=== PATIENT | female | born 1945 | race Caucasian/White ===

== ENCOUNTER 2017-06-03 08:40 | Outpatient (CLI) | payer OTHER ==
[~2017-06-03 08:40] MED LIST: AVANDIA4 MG PO; GLUCOPHAGE XR500 MG PO; HYZAAR 100-251 UDTAB PO; INTEGRA PLUS C1 EACH PO; OXYC1TAB9 PO; SPIRONOLACTONE25 MG PO
== END 2017-06-03 12:22 | disposition home or self-care (01) ==
LOC: TOM 08:40
DX: C18.5 Malignant neoplasm of splenic flexure (principal); Z90.49 Acquired absence of other specified parts of digestive tract

== ENCOUNTER 2017-06-30 13:35 | Outpatient (CLI) | payer OTHER | END 2017-06-30 13:42 | disposition home or self-care (01) | LOC: LAB 13:35 | DX: C18.5 Malignant neoplasm of splenic flexure (principal) ==

== ENCOUNTER 2017-08-16 08:30 | Inpatient (IN) | payer OTHER ==
[2017-09-05] MEDS ORDERED: OMEPRAZOLE20 M1 PO (11:12)
[2017-09-05] MEDS ORDERED: TYLENOL ARTHRI650 MG PO (11:12)
[2017-09-05] MEDS ORDERED: INTESTINEX680 M1 PO (11:12)
== END 2017-09-05 12:58 | disposition home or self-care (01) | DRG 330 ==
LOC: O/R 08-23 06:15 → SURH 08-23 06:15
PROVIDERS: Surgery; Urology
PROC: 0DBU4ZZ Excision of Omentum, Percutaneous Endoscopic Approach (ICD-10-PCS; 2017-08-23)
PROC: 0T788DZ Dilation of Bilateral Ureters with Intraluminal Device, Via Natural or Artificial Opening Endoscopic (ICD-10-PCS; 2017-08-23)
PROC: 0DJD8ZZ Inspection of Lower Intestinal Tract, Via Natural or Artificial Opening Endoscopic (ICD-10-PCS; 2017-08-23)
PROC: 0DTE4ZZ Resection of Large Intestine, Percutaneous Endoscopic Approach (ICD-10-PCS; principal; 2017-08-23 07:00)
PROC: 07TC4ZZ Resection of Pelvis Lymphatic, Percutaneous Endoscopic Approach (ICD-10-PCS; 2017-08-23 07:00)
PROC: BT43ZZZ Ultrasonography of Bilateral Kidneys (ICD-10-PCS; 2017-08-25)
PROC: B246ZZZ Ultrasonography of Right and Left Heart (ICD-10-PCS; 2017-08-26)
PROC: 30233N1 Transfusion of Nonautologous Red Blood Cells into Peripheral Vein, Percutaneous Approach (ICD-10-PCS; 2017-08-28)
PROC: 3E0336Z Introduction of Nutritional Substance into Peripheral Vein, Percutaneous Approach (ICD-10-PCS; 2017-08-28)
PROC: BW21Y0Z Computerized Tomography (CT Scan) of Abdomen and Pelvis using Other Contrast, Unenhanced and Enhanced (ICD-10-PCS; 2017-08-30)
PROC: 0W9G30Z Drainage of Peritoneal Cavity with Drainage Device, Percutaneous Approach (ICD-10-PCS; 2017-08-31)
PROC: BW21Y0Z Computerized Tomography (CT Scan) of Abdomen and Pelvis using Other Contrast, Unenhanced and Enhanced (ICD-10-PCS; 2017-09-02)
DX: C18.5 Malignant neoplasm of splenic flexure (principal); R65.10 Systemic inflammatory response syndrome (SIRS) of non-infectious origin without acute organ dysfunction; N17.8 Other acute kidney failure; D62 Acute posthemorrhagic anemia; B37.49 Other urogenital candidiasis; K56.0 Paralytic ileus; K91.89 Other postprocedural complications and disorders of digestive system; I10 Essential (primary) hypertension; E66.01 Morbid (severe) obesity due to excess calories; R59.0 Localized enlarged lymph nodes; N99.0 Postprocedural (acute) (chronic) kidney failure; N99.89 Other postprocedural complications and disorders of genitourinary system; E11.9 Type 2 diabetes mellitus without complications